=== PATIENT | female | born 1935 | race Caucasian/White ===

== ENCOUNTER 2016-09-05 15:25 | Emergency (ER) | payer MEDICARE, OTHER ==
[~2016-09-05 15:25] MED LIST: CALTRATE-600 W600 MG PO; CENTRUM SILVER1 EAC1 PO; COZAAR DPS25 MG PO; MAALOX DPS30 ML PO; MAGNESIUM DR64 MG PO; NORVASC5 MG PO; OMEGA-3 DPS1000 MG PO; PROTONIX40 MG PO; SURFAK DPS240 MG PO; TYLENOL DPS325 MG PO; VITAMIN D-32000 UNI1 PO; XANAX DPS0.25 MG PO; ZETIA10 MG PO
--- NOTE | 2016-09-10 21:52 | ER ---
ADMIT: 09/05/2016 RM/LOC: ER [facility] MR#: [id number] [address] [facility] [address] [place], [place] [address] ARSLAN NELSONTITO Blood [address] [place] [address] Emergency Room Report SEX: F AGE: 80 : 1935 DATE: 09/05/2016 ADDENDUM: CHIEF COMPLAINT: Hypertension. HISTORY OF PRESENT ILLNESS: This is a 80-year-old, who has dealt with hypertension all her entire life. It has been a little bit higher recently just because she has been more stressed. They increased her losartan to 25 mg b.i.d., she was only taking it once a day. They did this yesterday. Today, she was just checking her blood pressure like her doctor told her to, and she was concerned because it was almost 200 systolic. She presents to the ER. She complains of mostly her feet ache and now she has a headache. I did do a CT of her head, it is negative for any acute findings. Her neuro exam is completely normal. I did offer her clonidine. She was just very hesitant to take anything for blood pressure, just wanted reassurance that everything was okay. Her headaches actually just improved on her own since she has been here. CLINICAL IMPRESSION: Hypertension and headache. DISPOSITION: I told her to continue losartan twice daily. Try to decrease stress in her life. Follow up with Dr. Cadena in about a week with her listed blood pressures. JENISE Singh / Montana Betts MD / barbi JOB #: [id number] CC: Montana Betts MD, Attending Physician Jesus Cadena MD, Family Physician
[2016-10-16] MEDS ORDERED: COZAAR DPS25 MG PO (07:24)
[2016-10-16] MEDS ORDERED: METOPROLOL TART25 MG PO (07:25)
[2016-10-16] MEDS ORDERED: MAG6464 MG PO (07:26)
== END 2016-09-05 17:24 | disposition home or self-care (01) ==
LOC: ER 15:25
DX: I10 Essential (primary) hypertension (principal); R51 Headache; E78.00 Pure hypercholesterolemia, unspecified; Z88.2 Allergy status to sulfonamides; Z88.1 Allergy status to other antibiotic agents; Z79.899 Other long term (current) drug therapy

== ENCOUNTER 2016-09-18 11:07 | Emergency (ER) | payer MEDICARE, OTHER ==
[2016-10-16] MEDS ORDERED: COZAAR DPS25 MG PO (07:24)
[2016-10-16] MEDS ORDERED: METOPROLOL TART25 MG PO (07:25)
[2016-10-16] MEDS ORDERED: MAG6464 MG PO (07:26)
== END 2016-09-18 14:40 | disposition home or self-care (01) ==
DX: I10 Essential (primary) hypertension (principal); Z88.0 Allergy status to penicillin; Z88.1 Allergy status to other antibiotic agents; Z88.8 Allergy status to other drugs, medicaments and biological substances; Z79.899 Other long term (current) drug therapy

== ENCOUNTER 2016-09-20 05:32 | Emergency (ER) | payer MEDICARE, OTHER ==
--- NOTE | 2016-09-27 18:47 | ER ---
ADMIT: 09/20/2016 RM/LOC: ER [facility] MR#: [id number] [address] [facility] [address] [place] [id number] LAVELL NELSON [address] [place] [address] Emergency Room Report SEX: F AGE: 80 : 1935 DATE: 09/20/2016 Patient is a 80-year-old female with past medical history of anxiety and hypertension came to the ER with chief complaint of waking up from sleep and also feeling funny per patient. The patient states during the day, she had multiple episodes of chest discomfort which was not related to exertion. The patient states she has on and off similar episodes and one time she was on Holter monitor, which was negative. The patient states she is compliant with her blood pressure medication, but her blood pressure is not well under control. At the moment, the patient denies any chest pain or shortness of breath but states she still feels a little funny on the chest. PHYSICAL EXAMINATION: VITAL SIGNS: The patient had high blood pressure with systolic of 170s, was mildly tachycardic to 101, afebrile, respiratory rate was 20, O2 saturation was good. GENERAL: The patient looked anxious but in no pain. HEAD and NECK: Trachea midline. No bruit in the neck. Pupils are equal bilateral, reactive to light, normal extraocular movements. CHEST: Clear to auscultation to the lungs bilaterally, HEART: Normal heart sounds without any murmurs or S3 or S4. ABDOMEN: Soft. There are no pulsating masses in the abdomen. EXTREMITIES: Normal peripheral lower extremities pulses. NEURO: Normal motor and sensory and the rest of the neural exam is also normal. The rest of the physical exam is noncontributory and normal. EKG did not show any ST or T changes or arrhythmia or Q waves. EKG was normal sinus rhythm. Cardiac enzymes are negative. Chest x-ray was negative for any acute changes or infiltrations. The rest of the lab works are all negative. The patient received GI cocktail and aspirin in the ER. The patient was re- examined and she felt better. The patient's systolic blood pressure was still in the 170s or 180s. The patient was advised to follow up with the primary care doctor. The patient is stable with no signs or symptoms of end-organ damage at the moment, and can be discharged to home. Carrillo Arredondo MD/ barbi JOB #: [id number] CC: Carrillo Arredondo MD, Attending Physician Jesus Cadena MD, Family Physician
[2016-10-16] MEDS ORDERED: COZAAR DPS25 MG PO (07:24)
[2016-10-16] MEDS ORDERED: METOPROLOL TART25 MG PO (07:25)
[2016-10-16] MEDS ORDERED: MAG6464 MG PO (07:26)
== END 2016-09-20 07:20 | disposition home or self-care (01) ==
LOC: ER 05:32
DX: R07.89 Other chest pain (principal); I10 Essential (primary) hypertension

== ENCOUNTER 2016-10-13 21:00 | Observation (INO) | payer MEDICARE, OTHER ==
[~2016-10-13] VITALS: Ht 162.6 cm; Wt 74.0 kg
--- NOTE | 2016-10-15 08:55 | HP ---
ADMIT: 10/13/2016 RM/LOC: 633 [facility] MR#: [id number] [address] [facility] [address] [place] [id number] SHERRIE NELSON [address] [place] [address] History and Physical SEX: F AGE: 80 : 1935 DATE OF SERVICE: CHIEF COMPLAINT: Low sodium, abdominal pain. HISTORY OF PRESENT ILLNESS: Sherrie is a very nice 80-year-old female, who is cared for in our office by Dr. Jesus Cadena. Sherrie has a history of irritable bowel and diverticulosis. She states yesterday she ate a bhanu melt and it disagreed with her. She had increasing abdominal pain. She was concerned about this abdominal pain plus her blood pressure, so she presented herself to the emergency room. She recently was seen by Cardiology at [facility] and chlorthalidone was added to her medication because of elevated blood pressure. In the emergency room, workup for abdominal pain was essentially negative with normal CBC, normal UA, and normal abdominal exam. She did, however, have very low sodium level of 121 on admission. She is therefore admitted for hyponatremia. Sherrie additionally has according to the patient one functioning kidney. The other kidney has cyst on it. Because of the solitary functioning kidney, she has been instructed to drink plenty of water, and she has been adhering to that quite faithfully. She says she drinks quite a bit of water during the day. Most likely at this time, her low sodium level is due to the chlorthalidone and increased water intake. She has felt more tired and lethargic recently, and this is prior attributable to the sodium level. Her last bowel movement was on the day of admission, was a little bit looser than normal. She says she generally tends toward constipation. Having the bowel movement did not relieve the abdominal discomfort. She is not able to localize the discomforts, says it kind of hurts all over, was crampy. There was no blood in the stool. She has not had any fever. She has had no urinary symptoms, no urgency, frequency, or dysuria. PAST MEDICAL HISTORY: She has history of hypertension, gastroesophageal reflux, osteoporosis, hyperlipidemia, irritable bowel, hiatal hernia, chronic anxiety, solitary functioning kidney, normal heart catheterization in 2005 with negative stress test in 2009; however, they did schedule her for another stress test this past week, but she says she cancelled it since she was not feeling well. PAST SURGICAL HISTORY: Includes previous appendectomy and cholecystectomy. ALLERGIES: SHE IS ALLERGIC TO CONTRAST DYE, PENICILLIN, SULFA, IODINE, TRIMETHOPRIM, AMLODIPINE, AND AMOXICILLIN. CURRENT MEDICATIONS: 1. Protonix 40 mg b.i.d. ADMIT: 10/13/2016 RM/LOC: 633 [facility] MR#: [id number] [address] [address] SHERRIE NELSON [address] [place] [address] History and Physical SEX: F AGE: 80 : 1935 2. Metoprolol 25 mg daily. 3. Losartan 25 mg b.i.d. 4. Chlorthalidone 12.5 mg daily. 5. Slow-Mag 64 mg daily. 6. Zetia 10 mg daily. 7. Vitamin D 2000 international units daily. 8. Calcium supplements. 9. Multivitamin. 10.Fish oil. SOCIAL HISTORY: Does not use tobacco or alcohol. She is , lives at home. FAMILY HISTORY: Mother had pancreatic cancer and stroke. Father had history of lymphoma and stroke with hypertension. She has a sister with colon cancer. REVIEW OF SYSTEMS: A 10-point review of systems negative other than those issues noted above. PHYSICAL EXAMINATION: GENERAL: A 80-year-old female, alert, and oriented x3, appears younger than her stated age. VITAL SIGNS: Stable. BP is elevated 160/80, pulse is 70 and regular, temp is 98.2, and O2 saturation is 93% on room air. HEENT: Eyes; PERRLA. EOMs intact. TMs not seen. Throat is moist, not inflamed. NECK: Supple. No lymphadenopathy. LUNGS: Clear to auscultation. Respirations not labored. BREASTS: Not examined. HEART: Regular rate. No murmur. ABDOMEN: Flat. Bowel sounds normoactive. There is no organomegaly and no abdominal tenderness. GENITOURINARY AND RECTAL: Deferred. EXTREMITIES: No clubbing, cyanosis, or edema. ADMIT: 10/13/2016 RM/LOC: 633 [facility] MR#: [id number] [address] [address] SHERRIE NELSON [address] [place] [address] History and Physical SEX: F AGE: 80 : 1935 DIAGNOSTIC IMPRESSION: 1. Hyponatremia. 2. Chronic abdominal pain with acute exacerbation. 3. Irritable bowel syndrome. 4. Hypertension. 5. History of solitary functioning kidney. Her creatinine now is 1.2. 6. Gastroesophageal reflux disease. 7. Chronic anxiety. PLAN: We will have her restrict her fluid intake to 2500 mL per day. We will stop the chlorthalidone. We will increase her beta-grace for blood pressure control. Her sodium is stable. She will be able to be dismissed later today. Clifton Leon MD/ barbi JOB #: [id number] CC: Jesus Cadena, Attending Physician Jesus Cadena, Family Physician
[2016-10-16] MEDS ORDERED: COZAAR DPS25 MG PO (07:24)
[2016-10-16] MEDS ORDERED: METOPROLOL TART25 MG PO (07:25)
[2016-10-16] MEDS ORDERED: MAG6464 MG PO (07:26)
--- NOTE | 2016-10-17 00:40 | ER ---
ADMIT: 10/13/2016 RM/LOC: 633 [facility] MR#: [id number] [address] [facility] [address] [place], [place] [address] LAVELL NELSON [address] [place] [address] Emergency Room Report SEX: F AGE: 80 : 1935 DATE: 10/13/2016 BRIEF ADDENDUM: Please see my T-sheet for complete review of systems, past medical history, and physical exam. CHIEF COMPLAINT: Vomiting, abdominal pain. HISTORY OF PRESENT ILLNESS: This is a 80-year-old white female, who presents with abdominal pain and vomiting. States she does have a history of diverticulosis and is concerned that this could be causing her problems. Also, states that she was at [employer] last night and had a bhanu melt and both her and her did not feel well after eating this. Primarily presents today as she had a single episode of vomiting. Admits to some mild diarrhea and some diffuse aching abdominal pain. States she has had some off and on chest pain that she is seeing Cardiology for. She has been drinking a lot of water as she has a history of kidney problems and was encouraged to consume large amounts of fluid to keep this kidney healthy. She is quite anxious today about her blood pressure and various other complaints. PAST MEDICAL HISTORY: For diverticulosis, arthritis, chronic kidney disease, GERD and hypertension. ALLERGIES: SHE HAS MULTIPLE MEDICAL ALLERGIES. EMERGENCY ROOM COURSE: VITAL SIGNS: The patient was seen and examined. Blood pressure 172/65, heart rate 66, respirations 20, temp 98.0. GENERAL: She is in no acute distress. She is anxious. NECK: Soft and supple. RESPIRATIONS: No respiratory distress. No wheezes, rales, or rhonchi. HEART: Regular rate and rhythm. ABDOMEN: Soft. She has some epigastric tenderness. No rebound or guarding. No McBurney's point tenderness. Bowel sounds are mildly decreased. BACK: Normal. No CVA tenderness. SKIN: Warm and dry. EXTREMITIES: No pedal edema. NEURO: She is alert and oriented x4. She is, however, very anxious I did start a line on her and gave her some fluids and I also gave her Zofran 4 mg IV as well as Ativan 0.5 mg for her anxiety. LABORATORY DATA: White count 11.1, hemoglobin 11.9, hematocrit 34.6, platelets 308. Sodium 121, potassium 3.1, BUN 15, glucose 111. UA, no sign of infection. I did talk with Dr. Leon, who is taking call for ADMIT: 10/13/2016 RM/LOC: 633 [facility] MR#: [id number] [address] [address] LAVELL NELSON [address] [place] [address] Emergency Room Report SEX: F AGE: 80 : 1935 Surinder. Today, I made him aware of the sodium, will admit to the hospital for further evaluation and management. IMPRESSION: 1. Hyponatremia. 2. Abdominal pain. 3. Chronic kidney disease. 4. Hypertension. DISPOSITION: Patient will be admitted to med/surg. Admitting physician, Dr. Leon. Questions were sought and answered to the best of my ability and to the patient's satisfaction. Discharged in stable condition. JENISE Barry / Carrillo Arredondo MD / modl JOB #: [id number] CC: Jesus Cadena MD, Attending Physician Jesus Cadena MD, Family Physician
== END 2016-10-14 10:40 | disposition home or self-care (01) ==
LOC: ER 21:00 → 6PED 23:15
PROVIDERS: ADMIT Family Medicine
DX: E87.1 Hypo-osmolality and hyponatremia (principal); I10 Essential (primary) hypertension; R10.9 Unspecified abdominal pain; K21.9 Gastro-esophageal reflux disease without esophagitis; E78.5 Hyperlipidemia, unspecified; M81.0 Age-related osteoporosis without current pathological fracture; F41.9 Anxiety disorder, unspecified; Z88.0 Allergy status to penicillin; Z88.2 Allergy status to sulfonamides; Z88.1 Allergy status to other antibiotic agents; Z91.041 Radiographic dye allergy status; Z79.899 Other long term (current) drug therapy; Z90.49 Acquired absence of other specified parts of digestive tract